=== PATIENT | female | born 1940 | race Caucasian/White ===

== ENCOUNTER 2023-12-05 13:50 | Emergency (ER) | payer MEDICARE, SELFPAY ==
[2023-12-05 14:21] VITALS: BP 116/68
[2023-12-05 15:00] VITALS: BP 107/63
--- NOTE | 2023-12-05 15:23 | ED.GENMED ---
History of Present Illness
General
Chief Complaint: Abdominal Symptoms
Source: spouse and family
Time Seen by Provider: 12/05/23 15:01
History of Present Illness
History of Present Illness:
83-year-old female brought to the emergency room for evaluation after an episode today where she passed out and that vomited. Patient has evidently had a long history of syncopal episodes. No clear source has been identified. Recently she was
admitted to [place] for 1 of these events which was also associated with some left facial droop and biting the tongue. An extensive workup was performed without any clear abnormalities. Patient was discharged and family was told they did not
believe she had an ischemic event or a seizure but rather had convulsive syncope. Patient only takes cholesterol medication. Currently she denies any chest pain, shortness of breath, abdominal pain or nausea. Patient does have dementia and is not
able to provide a very detailed history. states the patient does not vomit frequently. He was concerned there was blood in her vomitus but after further discussion we realized the patient had eaten blueberries this morning which I believe
accounts for the color of the vomitus.
Phy Exam
Physical Exam
Physical Exam:
General: Awake, Alert, Oriented X3. No acute distress.
Vitals: unremarkable
Head: Atraumatic
Eyes: Pupils equal, EOMI
Throat: Airway intact, no exudates
Neck: Trachea midline
Lungs: Clear and equal b/l
Heart: Regular rate, no murmurs
Abd: Soft, Nontender, No pulsatile mass
Rectal: Brown stool heme-negative
Neuro: Nonfocal
Skin: Warm, dry, no rash
Extremities: pulses equal b/l, no edema
Course
Orders/Labs/Results
Orders:
Orders
12/05/23 14:05
Electrocardiogram (*1) Urgent
Reason for Study: Syncope
12/05/23 14:06
EKG- Treatment ONCE
12/05/23 15:21
CMP [Comprehensive Metabolic Panel] Urgent
Complete Blood Count/With Diff Urgent
12/05/23 15:22
0.9% Sodium Chloride 500 ml [Nss] 500 ml IV BOLUS
12/05/23 16:15
Urinalysis Reflex To Culture Urgent
Date Specimen was Collected: 12/05/23
Time Specimen was Collected: 15:46
Urine Microscopic Reflex Cult Urgent
Urine Culture Urgent
MARKO Source: U
Specimen Description:
Date Specimen was Collected: 12/05/23
Time Specimen was Collected: 15:46
12/05/23 17:26
Urinalysis Reflex To Culture Urgent
Date Specimen was Collected: 12/05/23
Time Specimen was Collected: 17:24
Abnormal Lab Results
12/05/23 12/05/23
15:21 16:15
WBC 15.6 H 10^3/uL
(4.8-10.8)
MCH 31.7 H pg
(27.0-31.0)
Abs Immat Gran (auto) 0.1 H 10^3/uL
(0-0.05)
Absolute Neuts (auto) 14.1 H 10^3/uL
(1.4-6.5)
Absolute Lymphs (auto) 1.0 L 10^3/uL
(1.2-3.4)
Neutrophils % 90.4 H %
(42.2-75.2)
Lymphocytes % 6.1 L %
(20.5-51.1)
Sodium 130 L mmol/L
(135-145)
BUN 19 H mg/dl
(7-17)
Glucose 157 H mg/dl
(70-99)
AST 47 H U/L
(14-36)
Total Protein 5.9 L g/dl
(6.3-8.2)
Albumin 2.4 L g/dl
(3.5-5.0)
Urine Ketones 2+ A
(Negative)
Leukocyte Esterase Rfl 1+ A
(Negative)
Urine WBC (Reflex) 26-30 A /HPF
(0-5)
Urine Bacteria (Reflex) Many A
(Negative)
Urine Glucose 1+ A
(Negative)
Urine Albumin (Reflex) 1+ A
(Neg - Trace)
12/05/23 15:21
12/05/23 15:21
Vital Signs
Initial and Last Documented VS:
Initial Vital Signs
Temp Pulse Resp BP Pulse Ox
97.6 F 74 24 116/68 96
12/05/23 14:21 12/05/23 14:21 12/05/23 14:21 12/05/23 14:21 12/05/23 14:21
Last Documented Vital Signs
Temp Pulse Resp BP Pulse Ox
97.6 F 74 28 112/69 91
12/05/23 14:21 12/05/23 18:00 12/05/23 18:00 12/05/23 18:00 12/05/23 18:00
MDM/Problems Addressed
Differential Diagnosis Includes:
Syncope, vasovagal event, gastritis, UTI, electrolyte abnormality
MDM/Problems Addressed:
Labs show the patient has a very mild elevation of white blood cell count. Her chemistries show mild hyponatremia. BUN is mildly elevated at 19. Patient was treated with IV fluids. She had an initial urinalysis which was abnormal but had a large
number of squamous epithelial cells and was not a very good specimen based upon the description of how it was obtained. This was followed up with a straight cath urinalysis which is completely normal. Patient had abnormal green-colored vomitus
which is almost certainly due to the blueberry she ate. There is no evidence of gastrointestinal bleeding. Patient has had multiple syncopal episodes in the past without any etiology identified but she certainly does not have any risk factors for
cardiac syncope. Patient stable for discharge home. They are very happy to be going home.
*EKG
Interpreted by ED Provider?: Yes
Heart Rate: 71
Rate: normal
Rhythm: sinus
Interval: first degree heart block
QRS Pattern: normal QRS
Ischemia: no ischemia
*School Transportation Supervisor Interpretation
Rate: normal
Interpretation: abnormal
Rhythm: sinus
*Critical Care Note
Total Time (30-74mins, 75-104mins- exclusive of procedures): Not Applicable
Patient Management
Social determinants of health affecting care: Strong social support
ED Attending Note
-
Portions of this chart may have been created with voice recognition software.� Occasional wrong word or��sound alike� substitutions may have occurred due to the inherent limitations of voice recognition software.
Discharge Plan
Departure
Patient Disposition: Home (Routine Discharge)
Date of Disposition: 12/05/23
Time of Disposition: 18:04
Patient with high blood pressure during this ER visit?: No
Condition: Good
Discharge Problem:
Syncope, vasovagal
Instructions: Syncope (Fainting) (DC)
Referrals:
Sánchez Stinson MD [Family Provider] -
Interventions
Interventions:
*Risk Screen - Suicide Last Done: 12/05/23 14:40
*General Assessment Last Done: 12/05/23 14:40
*Neglect/Abuse Screening Last Done: 12/05/23 18:17
ED- Fall Risk Assessment Last Done: 12/05/23 14:40
*ED COVID-19 Vaccine History Last Done: 12/05/23 14:40
*Nursing Disposition Last Done: 12/05/23 18:17
CD-Hrgrbt-Uwfcirxkov Assessment Last Done: 12/05/23 14:40
Discharge Date and Time
Discharge Date/Time: 12/05/23 18:18
Print Language: KOREAN
[2023-12-05] MEDS: NSS 500 IV (15:28)
[2023-12-05 15:33] LABS: % Basophils 0.2 % (0-2); % Immature Granulocytes 0.4 % (0-0.5); % Lymphocytes 6.1 % (20.5-51.1); % Monocytes 2.9 % (1.7-9.3); % Neutrophils 90.4 % (42.2-75.2); Absolute Immature Granulocytes 0.1 10^3/uL (0-0.05); Absolute Monocytes 0.5 10^3/uL (0.1-0.6); Absolute Neutrophils 14.1 10^3/uL (1.4-6.5); Hematocrit 37.1 % (37.0-47.0); Hemoglobin 13.5 g/dL (12.0-16.0); Mean Corp Hgb Conc. 36.4 g/dL (33.0-37.0); Mean Corpuscular Hgb 31.7 pg (27.0-31.0); Mean Corpuscular Volume 87.1 fL (81.0-99.0); Mean Platelet Volume 10.2 fL (7.4-10.4); Nucleated Red Blood Cells % 0 %; Platelet Count 206 10^3/uL (130-400); Red Blood Cell Count 4.26 10^6/uL (4.20-5.40); Red Cell Dist. Width 14.1 % (11.5-14.5); White Blood Cell Count 15.6 10^3/uL (4.8-10.8)
[2023-12-05 15:43] LABS: ALT (SGPT) 28 U/L (0-35); AST (SGOT) 47 U/L (14-36); Albumin 2.4 g/dl (3.5-5.0); Alkaline Phosphatase 60 U/L (38-126); Blood Urea Nitrogen 19 mg/dl (7-17); Calcium 9.7 mg/dl (8.4-10.2); Carbon Dioxide 26 mmol/L (22-30); Chloride 98 mmol/L (98-107); Glucose 157 mg/dl (70-99); Sodium 130 mmol/L (135-145); Total Bilirubin 0.6 mg/dl (0.2-1.3); Total Protein 5.9 g/dl (6.3-8.2); eGFR > 60.00
[2023-12-05 16:00] VITALS: BP 113/68
[2023-12-05 16:32] LABS: Urine Albumin 1+ (Neg - Trace); Urine Bilirubin Negative (Negative); Urine Character Clear (Clear); Urine Color Yellow; Urine Glucose 1+ (Negative); Urine Ketone 2+ (Negative); Urine Leukocyte 1+ (Negative); Urine Nitrite Negative (Negative); Urine Occult Blood Negative (Negative); Urine Specific Gravity 1.025 (<1.030); Urine Urobilinogen Negative (Neg - 1+)
[2023-12-05 16:38] LABS: Urine Squamous Cell >30 /LPF (Few)
[2023-12-05 16:39] LABS: Urine Bacteria Many (Negative); Urine Red Blood Cell 0-2 /HPF (0-2); Urine White Cell 26-30 /HPF (0-5)
[2023-12-05 17:00] VITALS: BP 110/63
[2023-12-05 17:36] LABS: Urine Albumin Negative (Neg - Trace); Urine Bilirubin Negative (Negative); Urine Character Clear (Clear); Urine Color Yellow; Urine Glucose Negative (Negative); Urine Ketone Negative (Negative); Urine Leukocyte Negative (Negative); Urine Nitrite Negative (Negative); Urine Occult Blood Negative (Negative); Urine Specific Gravity 1.015 (<1.030); Urine Urobilinogen Negative (Neg - 1+)
[2023-12-05 18:00] VITALS: BP 112/69
== END 2023-12-05 18:18 | disposition home or self-care (01) ==
LOC: EMR 13:50
PROVIDERS: Emergency Medicine; EMERGENCY PHYSICIAN Emergency Medicine; FAMILY PHYSICIAN Internal Medicine
DX: R55 Syncope and collapse (principal); R11.10 Vomiting, unspecified; F03.90 Unspecified dementia, unspecified severity, without behavioral disturbance, psychotic disturbance, mood disturbance, and anxiety; E87.1 Hypo-osmolality and hyponatremia; I44.0 Atrioventricular block, first degree; Z79.899 Other long term (current) drug therapy; Z88.5 Allergy status to narcotic agent
CPT/HCPCS: 99284; 51701; 80053; 81003; 81015; 85025; 87086; 93005

== ENCOUNTER 2024-01-13 13:11 | Inpatient (IN) | payer MEDICARE, OTHER, SELFPAY ==
[2024-01-13] VITALS (13 sets, daily range): BP systolic 97–142; BP diastolic 46–83; PULSE 82; O2SAT 93; BMI 29.6
--- NOTE | 2024-01-13 11:02 | ED.CVA ---
History of Present Illness
General
Chief Complaint: CVA/TIA Symptoms
Source: patient, spouse and ambulance crew
Exam Limitations: clinical condition
Time Seen by Provider: 01/13/24 11:00
Nursing documentation reviewed up to this point in time: agreed with
Onset of Stroke Symptoms
Onset of symptoms known: Yes
Date of onset of symptoms: 01/13/24
History of Present Illness
History of Present Illness:
83-year-old female with past medical history of hyperlipidemia, TIA/CVA who presents to the ER via EMS as a prehospital stroke alert due to expressive aphasia, gaze deviation and confusion. On arrival patient awake and alert she seems to be
speaking appropriately she says that she feels 'tired. But denies any other complaints. I spoke to the patient's �he says that she woke up this morning appeared normal. She came down with breakfast around 9 AM and seem to be moving slower
than usual. He says that she seemed to have trouble eating her breakfast and was getting confused, complaining of being lightheaded. He says that she started to have progressive difficulty talking�she says that she was having difficulty finishing
her sentences. He says that she started to complain of worsening lightheadedness and laid her down on the ground that she did not pass out but rested on the ground for about 20 minutes. Eventually she got to the point where she could barely get
any words out at all and 'froze up and became less responsive.' EMS called to the scene. Per EMS on arrival she appeared to have left gaze preference, head drifting towards the right but no focal weakness in the arms or the legs. She was
following commands. She did have trouble expressing herself. Prehospital stroke alert called. On arrival here she complains of feeling tired, she does admit to feeling dizzy prior to arrival. Denies any chest pain or shortness of breath or any
other complaints. She apparently did have a similar episode at [facility] 6 to 8 weeks ago� says they were told it was not related to a stroke. She was then seen in the emergency room a few weeks later after syncopal event. No other issues
since.
Review of Systems
Review of Systems
All Other Systems: ROS reviewed and negative except as documented in HPI and ROS
Constitutional: Denies fever or chills
EENT: Denies sore throat or runny nose
Respiratory: Denies cough or trouble breathing
Cardiac: Denies chest pain or palpitations
ABD/GI: Denies abdominal pain, nausea, vomiting or diarrhea
: Denies dysuria, frequency or flank pain
Musculoskeletal: Denies neck pain or back pain
Neurological: Reports dizzy and other (Speech difficulties, confusion); Denies headache
Phy Exam
Physical Exam
Physical Exam:
General: Awake, alert, oriented x2; no acute distress
Head: Normocephalic, atraumatic
Eyes: Conjunctiva normal, EOMI (no gaze deviation noted), pupils equal round and reactive to light bilaterally; question right upper visual field deficit
Throat: Airway intact, handling secretions
Neck: Trachea midline, supple without meningismus
Lungs: Breathing comfortably no distress
Heart: Regular rate and rhythm, no murmurs, gallops, or rubs
Neuro: Question a right upper quadrant visual field deficit, otherwise cranial nerves intact 2 through 12, speech is fluid no dysarthria or aphasia, motor and sensory function intact and symmetric upper and lower extremities
Skin: no rash
Extremities: No edema in extremities, well-perfused
Scores
NIH Stroke Score
Level of Consciousness: 0 - Alert
LOC Questions: 1-Answers one correctly
LOC Commands: 0-Performs both correctly
Best Horizontal Gaze: 0-Normal
Visual López: 1=Partial hemianopia
Facial Palsy: 0=Normal, symmetrical
Motor - Right Arm: 0=No drift 10 seconds
Motor - Left Arm: 0=No drift 10 seconds
Motor - Right Le-No drift 5 seconds
Motor - Left Le-No drift 5 seconds
Limb Ataxia: 0-Absent
Sensation: 0-Normal
Best Language: 0-No aphasia
Dysarthria: 0-Normal
Extinction and Inattention: 0-No abnormality
Total Score:: 2
Thrombolytic Contraindication
Inclusion and Exclusion criteria reviewed: Yes
Reasons for NON-Tx with Thrombolytics POSSIBLE Exclusions: Recent ischemic stroke within 3 months (CT shows old stroke which is apparently recent as patient and report normal imaging at [facility])
Heart Failure Risk
Heart Failure Risk Score: Not Applicable
Heart Score for Chest Pain Patients
STEMI patient?: Not applicable
Withdrawal Assessment of Alcohol
Withdrawal Assessment Completed?: Not applicable
Course
Orders/Labs/Results
Orders:
Orders
01/13/24 11:00
Electrocardiogram (*1) Stat
Reason for Study: Other
Other Reason for Exam: neuro symptoms
CT Head W/o Cont STROKE ALERT Urgent
Comment:
Reason For Exam: left gaze preference, confused
CT Head/Neck Ang STROKE ALERT Urgent
Comment:
Reason For Exam: left gaze preference, confused
NEUROLOGY CONSULT Urgent
Consulting Provider: Uzair Lew
Was physician already notified: Yes
Bedside Glucose- Treatment ONCE
Cardiac Monitoring- Treatment ONCE
IV Insert/Care/Rem.- Treatment PRN
Vital Signs- Treatment ONCE
Frequency: q30m
O2 Therapy [RESP] Stat
Titrate/Wean O2 to maintain O2 sat greater than (%): 90
Pulse Ox/cont/shift [RESP] Stat
Quantity: 1
01/13/24 11:01
EKG- Treatment ONCE
01/13/24 11:11
Cardiovascular Evaluation Urgent
Complete Blood Count/With Diff Urgent
Comprehensive Metabolic Panel Urgent
Ferritin Urgent
Folate Urgent
Glycohemoglobin (HgbA1c) Urgent
PTT Urgent
Prothrombin Time Urgent
TSH Reflex To Free T4 Urgent
Vitamin B12 Urgent
01/13/24 11:28
Diphenhydramine [Benadryl] 50 mg IV NOW STA
Hydrocortisone Sod Succinate [Solu-Cortef] 200 mg IV NOW STA
Levetiracetam Injectable [Keppra] 1,000 mg IV NOW STA
01/13/24 11:36
EEG Routine Urgent
Reason for Exam: seizure
MR Brain W/o & With Contrast Routine
Comment:
Reason For Exam: seizure, mass/old stroke CT head
Recent pill cam endoscopy?: No
01/13/24 12:06
Aspirin 325 mg PO NOW STA
01/13/24 12:47
Add On- LAB Routine
Tests Added?: folate, ferritin, TSH reflex, B12, lipid panel, hbA1c
01/13/24 12:50
Admit/Transfer Patient As Directed
Co-Sign Provider:
Level of Care: Inpatient admission
Assign to:: Telemetry
Physician / Group: tonny
Diagnosis: TiA vs seizure
Reason for Telemetry: CVA/TIA
Date to Stop Telemetry: 01/16/24
Time to Stop Telemetry: 11:00
Reason for Hospitalization: TIA vs Seizure
Expected length of stay greater than two midnights?: Yes
ELOS- Estimated Length of Stay in days: 3
I certify the patient meets the requirements for IP care: Yes
PRN Pain Medication Management As Directed
May give lesser potent ordered pain med per pt: Yes
preference::
Protocol:: Medication orders for pain may be administered in a
manner that supports deferring to patient preference
when the pt is:
- Requesting an ordered lesser potent pain medication.
Least to most potent pain medications are defined
as: acetaminophen < NSAID < tramadol < opioids
(morphine, oxycodone, hydromorphone).
- Requesting a lesser dose of the same medication IF
ORDERED.
- Requesting a less intrusive route of administration
if both routes are prescribed by the provider (PO <
IV).
01/13/24 12:51
Code Status As Directed
Resuscitation Status: Full Code
01/13/24 13:03
CR Chest - 2 Views Stat
Comment:
Reason For Exam: sob
Speech Screening from [facility] Routine
01/13/24 13:07
COVID-19 Antigen Stat
Source: Nasal Swab
01/13/24 14:21
Acetaminophen [Tylenol/Feverall] 650 mg RECTAL Q4HPRN PRN
Acetaminophen [Tylenol] 650 mg PO Q4HPRN PRN
01/13/24 14:21
Case Management Consult ONCE
Case Management Consult: Discharge Planning
Comment: stroke/tia
DIETARY CONSULT Routine
Reason for Consult: stroke/TIA
[employer] Supervisor Urgent
Urinalysis Routine
Activity As Directed
Activity Level: As Tolerated
NIH Stroke Scale As Directed
Directions: Per protocol
Comment: every shift and with any change in condition or mental status
Neurological Checks As Directed
Frequency: q4h
Additional Instructions:: q4h x 24h upon admission to the floor, then qshift & with any change in condition
and mental status
Patient Education As Directed
Type: Stroke education packet
Comment: provide to patient and family
Pneumatic Compression Sleeves As Directed
Type: Thigh high
Precautions As Directed
Type of Precautions: Seizure
Swallow Screening CVA/TIA ONLY As Directed
Comment: NPO until swallowing screening completed
If patient FAILS swallow screening:: NPO, Speech Therapy consult, Aspiration Precautions
If patient PASSES swallow screening, diet:: Cholesterol Lowering
Vital Signs As Directed
Frequency: Per unit guidelines
Ot Eval And Treat Routine
Pt Eval And Treat Routine
Activity Level: As Tolerated
Speech Therapy Eval & Treat Routine
DX Deep Vein Thrombosis Video Routine
01/13/24 18:00
Atorvastatin [Lipitor] 40 mg PO QPM
01/13/24 20:00
Levetiracetam Injectable [Keppra] 500 mg IV Q12
01/14/24 06:00
Basic Metabolic Panel IN AM
Cardiovascular Evaluation IN AM
Complete Blood Count/No Diff IN AM
01/14/24 08:00
Aspirin Chewable [Low Strength Aspirin] 81 mg PO DAILY
01/15/24 06:00
Complete Blood Count/No Diff IN AM
01/16/24 06:00
Complete Blood Count/No Diff IN AM
01/16/24 11:00
DC Protocol for Telemetry ONCE
01/17/24 06:00
Complete Blood Count/No Diff IN AM
Abnormal Lab Results
01/13/24 01/13/24
11:11 11:18
WBC 11.5 H 10^3/uL
(4.8-10.8)
MCH 31.5 H pg
(27.0-31.0)
Abs Immat Gran (auto) 0.2 H 10^3/uL
(0-0.05)
Absolute Neuts (auto) 7.7 H 10^3/uL
(1.4-6.5)
Immature Gran % 1.9 H %
(0-0.5)
Carbon Dioxide 17 L mmol/L
(22-30)
Glucose 203 H mg/dl
(70-99)
POC Glucose 178 H mg/dl
(70-99)
01/13/24 11:11
01/13/24 11:11
Vital Signs
Initial and Last Documented VS:
Initial Vital Signs
Pulse Resp Pulse Ox
96 20 95
01/13/24 11:18 01/13/24 11:18 01/13/24 11:18
Last Documented Vital Signs
Temp Pulse Resp BP Pulse Ox
36.8 C 78 18 122/71 96
01/13/24 14:40 01/13/24 14:40 01/13/24 14:40 01/13/24 14:40 01/13/24 14:40
MDM/Problems Addressed
Differential Diagnosis Includes:
CVA, seizure, brain mass
MDM/Problems Addressed:
83-year-old female presents after an episode of expressive aphasia, confusion, dizziness and apparently had transient gaze deviation that was witnessed by EMS. She was called as a prehospital stroke alert, symptoms seem to have improved by
arrival�neuroexam was significant only for some mild confusion (oriented x 2) and questionable right upper quadrant visual field defect. Vital signs normal. 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
meningioma but no acute pathology. CTA head and neck negative for any LVO or dissection. Neurology at bedside during initial evaluation and we discussed the case at length in the ER�suspect likely that this was a seizure episode. Recommended no
TNK. Will cover with aspirin, admit for MRI, EEG. They recommended loading with Keppra. Case discussed with hospitalist for admission.
Chronic conditions affecting care:
Hyperlipidemia, TIA/CVA
*Radiology
Radiology exam reviewed: radiology read reviewed
*Pulse Oximetry
Patient hypoxic: no
*EKG
Interpreted by ED Provider?: Yes
Heart Rate: 94
Rate: normal
Rhythm: sinus
Plover: left axis deviation
Interval: first degree heart block
QRS Pattern: normal QRS and left vent hypertrophy
Ischemia: non-specific ST changes
*Critical Care Note
Total Time (30-74mins, 75-104mins- exclusive of procedures): Not Applicable
Data Reviewed
Source: patient, records, spouse and ambulance crew
Patient Management
Discussion with other providers: Hospitalist (Discussed with hospitalist), Bill Peddler (Discussed with neurologist) and Radiologist (Discussed with radiology)
Escalation/DeEscalation of care consider admission/obs:
Admission indicated
ED Attending Note
-
Portions of this chart may have been created with voice recognition software.� Occasional wrong word or��sound alike� substitutions may have occurred due to the inherent limitations of voice recognition software.
Discharge Plan
Departure
Patient Disposition: Admit
Date of Disposition: 01/13/24
Time of Disposition: 12:06
Admit to doctor: Tonny
Presentation/result/management discussed w/ accepting MD/DO: Hospitalist
Discharge Problem:
Brain TIA
Interventions
Interventions:
*Risk Screen - Suicide Last Done: 01/13/24 11:35
*General Assessment Last Done: 01/13/24 11:35
*Neglect/Abuse Screening Last Done: 01/13/24 11:35
*ED COVID-19 Vaccine History Last Done: 01/13/24 11:35
*Nursing Disposition Last Done: 01/13/24 14:12
ED- Pulmonary Assessment Last Done: 01/13/24 11:38
ED- Neurological Assessment Last Done: 01/13/24 11:38
ED- Cardiac Assessment Last Done: 01/13/24 11:38
ED Swallowing Screen Last Done: 01/13/24 13:03
Discharge Date and Time
Discharge Date/Time: 01/13/24 14:12
--- NOTE | 2024-01-13 11:11 | CON.NEURO4 ---
Documented by User: Africa Prescott NP 01/13/24 13:01
Consultation - Neurology 4
-
CONSULTING PHYSICIAN: Uzair Lew MD
REFERRING PHYSICIAN: ER/Dr. Granado
DICTATED BY: STANLEY Petit
DATE/TIME OF REQUEST: 01/13/24
DATE/TIME OF CONSULTATION: 01/13/24
Reason for Consultation: Stroke Alert
History of Present Illness:
This is a 83-year-old left-handed female who has presented to the hospital with report of change in mental status. Patient is unable to provide a history and this information is obtained from paramedics and her spouse at bedside. Patient has a
significant history of vasovagal syncope dating back decades. Per her , her syncopal episodes in the past were typically short lived, she would lie flat for a minute and return to her baseline within a minute or so. in October 2023, he reports
that she lost consciousness while seated, her upper extremities were stiff/slightly shaky, her left face appeared droopy, and she bit her tongue. He was unable to 'wake her up' during that event. She was evaluated at [facility] at that time,
unclear what diagnostic workup was completed. They were told the event was convulsive syncope. Then in November 2023, she had another episode of losing consciousness which he reports was fairly similar to October's event. She became stiff/slightly shaky,
lost consciousness, and then vomited. It took her an extended period to return to her baseline. She was hyponatremic, and the event was deemed vasovagal syncope. She did not have any neurological imaging completed during that visit.
Today (01/13/24), patient's reports that she woke up and came to eat breakfast at 0900 but seemed to be moving slowly. She complained of back pain which is not unusual. During breakfast, she started having difficulty getting her words
out/could not finish her sentences, and she was not able to eat. She reported feeling dizzy and lightheaded and her legs were shaky. She sat for 20 minutes resting and was speaking minimally but was awake and alert. He then helped her to lie on the
ground because of her lightheadedness. An hour later at 1000 he reports she 'froze' and became stiff, started turning blue, and stopped responding to him, prompting him to call 911. EMS report that she had left facial drooping and difficulty
speaking on their arrival and they activated a stroke alert. CT head and CTA head/neck were obtained on arrival in the ER. CT head demonstrates an old right frontal lobe ischemic stroke, possible tiny old left thalamic infarct, and two left
posterior parafalcine partially calcified lesions likely representing meningiomas. NIHSS is 4 for inability to answer orientation questions, mild left facial droop, and RUQ field cut. She appears to have a slight right tongue laceration/dried blood.
She is not a candidate for TNK/IAT due to unclear diagnosis, more likely seizure than stroke, and concern for brain mass. Patient denies any headache, dizziness, vision changes, speech/swallow difficulty, numbness, weakness, chest pain,
palpitations, and shortness of breath. She reports feeling cold and cannot recall what led to her coming to the hospital. Patient and her deny any known history of stroke. She is not taking any blood thinning medications.
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
Surgical History: Unknown.
Family History: Reviewed and noncontributory.
Social History: Denies tobacco and illicit drug use. Occasional alcohol.
Allergies: Codeine.
Home Medications: See below.
Review of Symptoms:
Patient denies any fever, headache, chest pain, shortness of breath, GI or symptoms.
�Per the HPI.�All systems are reviewed negative except above.
Physical Exam:
The patient is afebrile, abdomen is nondistended, breathing is unlabored, skin is warm and dry, no edema.
NIH Stroke Scale:
I performed the NIH stroke scale on the patient on 01/13/24 at 1115. The patient scored 4 points on the NIH stroke scale assessment, which were assigned as follows: See below.
Neurologic Examination:
The patient is awake, alert and oriented to person only. She is able to follow commands and answer questions appropriately. There is no aphasia or dysarthria. On cranial nerve assessment, pupils are 3 mm bilateral, round and reactive to light and
accommodation. Visual lópez are reduced bilaterally in the RUQ. Extraocular movements are intact. Facial sensations are intact and bilaterally symmetrical. There is mild left facial drooping. Hearing is intact bilaterally to normal conversation
volume. Tongue palate and uvula are midline. Sternocleidomastoid strengths are full bilaterally. Motor strengths are 5/5 bilateral upper and lower extremities on medical research [place] scale. There is no drift or involuntary movement noted.
Babinski is absent bilaterally. There was no extinction noted on double simultaneous stimulation. Coordination is intact by finger to nose bilaterally.
Lab Results: See below.
Neuro Imaging:
1. CT Head 01/13/24: No acute intracranial hemorrhage. Moderate size area of decreased attenuation in the right frontal lobe deep white matter most likely representing an area of encephalomalacia/old infarction. Possible tiny old left thalamic
lacunar infarct. Two left posterior parafalcine partially calcified lesions most likely representing meningiomas, as measured above. ASPECTS score: 10.
2. CTA Head/Neck 01/13/24: No findings to suggest hemodynamically significant stenosis of the proximal internal carotid arteries bilaterally. No findings to suggest internal carotid artery or vertebral artery dissection bilaterally.
Narrow caliber left vertebral artery extending to left PICA, congenital variant of normal. 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
Differentials for the patient's presentation include:
1. Change in mental status likely due to partial seizure.
2. CT head suggestive of old right frontal lobe ischemic stroke and left posterior parafalcine lesions.
Patient has the following risk factors for their symptoms: Large old stroke, possible brain mass, hx syncope
IV Tenecteplase/IAT candidacy: She is not a candidate for TNK/IAT due to unclear diagnosis, more likely seizure than stroke, and concern for brain mass.
Recommendations:
-Provide aspirin 325mg x1 now. Continue aspirin 81mg daily for stroke prevention.
-Provide Keppra 1000mg IV x1 now. Continue Keppra 500mg IV q12hrs.
-MRI brain w/ and without contrast pending.
-Routine EEG pending.
-Reviewed preliminary MRI brain imaging with Neurosurgery Dr. Borges in person, per Neurosurgery, patient can follow-up regarding left posterior parafalcine meningioma as an outpatient.
-Goal normotension.
-LDL goal <70. LDL is pending. Home atorvastatin 10mg increased to 40mg daily.
-Goal normoglycemia, hbA1c is pending.
-Checking blood work for metabolic abnormalities.
-Neurological checks per unit guidelines.
-Provide patient with a stroke education packet.
-Seizure precautions.
-PT/OT/ST evaluations.
-DVT prophylaxis.
-Will follow pending results.
Discussed patient care with: Dr. Lew, the patient
Vital Signs and Labs
-
Vital Signs and Labs:
Vital Signs
Temp Pulse Resp BP Pulse Ox
97.8 F 84 23 126/72 92
01/13/24 11:32 01/13/24 11:54 01/13/24 11:45 01/13/24 11:45 01/13/24 11:45
Lab Results
01/13/24 11:11
01/13/24 11:11
PT 13.3 Sec (11.4-14.6) 01/13/24 11:11
INR 1.03 01/13/24 11:11
APTT 28.7 Sec (23.4-35.0) 01/13/24 11:11
Sodium 138 mmol/L (135-145) 01/13/24 11:11
Potassium 3.9 mmol/L (3.5-5.1) 01/13/24 11:11
BUN 16 mg/dl (7-17) 01/13/24 11:11
Glucose 203 mg/dl (70-99) H 01/13/24 11:11
Calcium 9.4 mg/dl (8.4-10.2) 01/13/24 11:11
Medications
-
Home Medications
�Medication �Instructions �Recorded
atorvastatin 10 mg tablet 10 mg PO DAILY 01/13/24
NIH Stroke Score
Subsequent NIH Scale
Date of Subsequent NIH Scale: 01/13/24
Time of Subsequent NIH Scale: 11:15
NIH Stroke Score
Level of Consciousness: 0 - Alert
LOC Questions: 2-Neither correct
LOC Commands: 0-Performs both correctly
Best Horizontal Gaze: 0-Normal
Visual Lpóez: 1=Partial hemianopia
Facial Palsy: 1=Minor paralysis
Motor - Right Arm: 0=No drift 10 seconds
Motor - Left Arm: 0=No drift 10 seconds
Motor - Right Le-No drift 5 seconds
Motor - Left Le-No drift 5 seconds
Limb Ataxia: 0-Absent
Sensation: 0-Normal
Best Language: 0-No aphasia
Dysarthria: 0-Normal
Extinction and Inattention: 0-No abnormality
Total Score:: 4

Documented by User: Uzair Lew MD 01/16/24 13:46
Consultation - Neurology 4
-
CONSULTING PHYSICIAN: Uzair Lew MD
REFERRING PHYSICIAN: ER/Dr. Granado
DICTATED BY: STANLEY Petit
DATE/TIME OF REQUEST: 01/13/24
DATE/TIME OF CONSULTATION: 01/13/24
Reason for Consultation: Stroke Alert
History of Present Illness:
This is a 83-year-old left-handed female who has presented to the hospital with report of change in mental status. Patient is unable to provide a history and this information is obtained from paramedics and her spouse at bedside. Patient has a
significant history of vasovagal syncope dating back decades. Per her , her syncopal episodes in the past were typically short lived, she would lie flat for a minute and return to her baseline within a minute or so. in October 2023, he reports
that she lost consciousness while seated, her upper extremities were stiff/slightly shaky, her left face appeared droopy, and she bit her tongue. He was unable to 'wake her up' during that event. She was evaluated at [facility] at that time,
unclear what diagnostic workup was completed. They were told the event was convulsive syncope. Then in November 2023, she had another episode of losing consciousness which he reports was fairly similar to October's event. She became stiff/slightly shaky,
lost consciousness, and then vomited. It took her an extended period to return to her baseline. She was hyponatremic, and the event was deemed vasovagal syncope. She did not have any neurological imaging completed during that visit.
Today (01/13/24), patient's reports that she woke up and came to eat breakfast at 0900 but seemed to be moving slowly. She complained of back pain which is not unusual. During breakfast, she started having difficulty getting her words
out/could not finish her sentences, and she was not able to eat. She reported feeling dizzy and lightheaded and her legs were shaky. She sat for 20 minutes resting and was speaking minimally but was awake and alert. He then helped her to lie on the
ground because of her lightheadedness. An hour later at 1000 he reports she 'froze' and became stiff, started turning blue, and stopped responding to him, prompting him to call 911. EMS report that she had left facial drooping and difficulty
speaking on their arrival and they activated a stroke alert. CT head and CTA head/neck were obtained on arrival in the ER. CT head demonstrates an old right frontal lobe ischemic stroke, possible tiny old left thalamic infarct, and two left
posterior parafalcine partially calcified lesions likely representing meningiomas. NIHSS is 4 for inability to answer orientation questions, mild left facial droop, and RUQ field cut. She appears to have a slight right tongue laceration/dried blood.
She is not a candidate for TNK/IAT due to unclear diagnosis, more likely seizure than stroke, and concern for brain mass. Patient denies any headache, dizziness, vision changes, speech/swallow difficulty, numbness, weakness, chest pain,
palpitations, and shortness of breath. She reports feeling cold and cannot recall what led to her coming to the hospital. Patient and her deny any known history of stroke. She is not taking any blood thinning medications.
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
Surgical History: Unknown.
Family History: Reviewed and noncontributory.
Social History: Denies tobacco and illicit drug use. Occasional alcohol.
Allergies: Codeine.
Home Medications: See below.
Review of Symptoms:
Patient denies any fever, headache, chest pain, shortness of breath, GI or symptoms.
�Per the HPI.�All systems are reviewed negative except above.
Physical Exam:
The patient is afebrile, abdomen is nondistended, breathing is unlabored, skin is warm and dry, no edema.
NIH Stroke Scale:
I performed the NIH stroke scale on the patient on 01/13/24 at 1115. The patient scored 4 points on the NIH stroke scale assessment, which were assigned as follows: See below.
Neurologic Examination:
The patient is awake, alert and oriented to person only. She is able to follow commands and answer questions appropriately. There is no aphasia or dysarthria. On cranial nerve assessment, pupils are 3 mm bilateral, round and reactive to light and
accommodation. Visual lópez are reduced bilaterally in the RUQ. Extraocular movements are intact. Facial sensations are intact and bilaterally symmetrical. There is mild left facial drooping. Hearing is intact bilaterally to normal conversation
volume. Tongue palate and uvula are midline. Sternocleidomastoid strengths are full bilaterally. Motor strengths are 5/5 bilateral upper and lower extremities on medical research [place] scale. There is no drift or involuntary movement noted.
Babinski is absent bilaterally. There was no extinction noted on double simultaneous stimulation. Coordination is intact by finger to nose bilaterally.
Lab Results: See below.
Neuro Imaging:
1. CT Head 01/13/24: No acute intracranial hemorrhage. Moderate size area of decreased attenuation in the right frontal lobe deep white matter most likely representing an area of encephalomalacia/old infarction. Possible tiny old left thalamic
lacunar infarct. Two left posterior parafalcine partially calcified lesions most likely representing meningiomas, as measured above. ASPECTS score: 10.
2. CTA Head/Neck 01/13/24: No findings to suggest hemodynamically significant stenosis of the proximal internal carotid arteries bilaterally. No findings to suggest internal carotid artery or vertebral artery dissection bilaterally.
Narrow caliber left vertebral artery extending to left PICA, congenital variant of normal. 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
Differentials for the patient's presentation include:
1. Change in mental status likely due to partial seizure.
2. CT head suggestive of old right frontal lobe ischemic stroke and left posterior parafalcine lesions.
Patient has the following risk factors for their symptoms: Large old stroke, possible brain mass, hx syncope
IV Tenecteplase/IAT candidacy: She is not a candidate for TNK/IAT due to unclear diagnosis, more likely seizure than stroke, and concern for brain mass.
Recommendations:
-Provide aspirin 325mg x1 now. Continue aspirin 81mg daily for stroke prevention.
-Provide Keppra 1000mg IV x1 now. Continue Keppra 500mg IV q12hrs.
-MRI brain w/ and without contrast pending.
-Routine EEG pending.
-Reviewed preliminary MRI brain imaging with Neurosurgery Dr. Borges in person, per Neurosurgery, patient can follow-up regarding left posterior parafalcine meningioma as an outpatient.
-Goal normotension.
-LDL goal <70. LDL is pending. Home atorvastatin 10mg increased to 40mg daily.
-Goal normoglycemia, hbA1c is pending.
-Checking blood work for metabolic abnormalities.
-Neurological checks per unit guidelines.
-Provide patient with a stroke education packet.
-Seizure precautions.
-PT/OT/ST evaluations.
-DVT prophylaxis.
-Will follow pending results.
Discussed patient care with: Dr. Lew, the patient
Neurology Attending Note:
83 yr. old lady with h/o numerous syncopal episodes over the last 5 years, breast cancer s/p lumpectomy, macular degeneration, legally blind who was in her USOH till this morning, when she sitting for breakfast.she started having difficulty talking
and could not finish her sentences, and she was not able to eat. She reported feeling dizzy and lightheaded and her legs were shaky. For next 20 minutes she was resting and speaking minimally but was awake and alert. He then helped her to lie on
the ground because of her lightheadedness. An hour later at 1000 he reports she 'froze' became stiff, turning blue, and stopped responding to him, prompting him to call 911.
EMS report that she had left facial drooping and difficulty speaking on their arrival Her face was drooping and there was twitching and jerking of her arms and legs. Previously after a few minutes pat would wake up and return to her baseline. But
she was unable to be aroused and remained lethargic. EMS notified and pat arrived to ED as stroke alert
In the ED pat woke up, was able to speak and follow commands. She could move all extremities
CT head showed chronic Right frontal ischemia with Left occipital meningioma
Pat was given Keppra 1000mg IV
O/E : Awake confused Oriented to person with limited interaction tends to fall asleep postictal. CN exam Reveals Right field cut with left facial weakness.
Motor exam reveals mild left sided weakness with Left Babinskis
She had similar complaints in September/October 2023 and was seen at [facility] with inconclusive findings. informs us that he is unaware of the old CVA or the left occipital meningioma
PLAN: MRI brain with and without Arpit
Keppra 500 mg BID
EEG
Neurosurgery eval
Pat may be discharged when she is medically stable.
NIH Stroke Score
NIH Stroke Score
Total Score:: 4
[2024-01-13 11:20] LABS: % Basophils 0.3 % (0-2); % Immature Granulocytes 1.9 % (0-0.5); % Lymphocytes 25.5 % (20.5-51.1); % Monocytes 4.2 % (1.7-9.3); % Neutrophils 67.1 % (42.2-75.2); Absolute Eosinophils 0.1 10^3/uL (0-0.7); Absolute Immature Granulocytes 0.2 10^3/uL (0-0.05); Absolute Lymphocytes 2.9 10^3/uL (1.2-3.4); Absolute Monocytes 0.5 10^3/uL (0.1-0.6); Absolute Neutrophils 7.7 10^3/uL (1.4-6.5); Hematocrit 40.8 % (37.0-47.0); Hemoglobin 14.3 g/dL (12.0-16.0); Mean Corpuscular Hgb 31.5 pg (27.0-31.0); Mean Corpuscular Volume 89.9 fL (81.0-99.0); Mean Platelet Volume 9.7 fL (7.4-10.4); Nucleated Red Blood Cells % 0 %; Platelet Count 241 10^3/uL (130-400); Red Blood Cell Count 4.54 10^6/uL (4.20-5.40); White Blood Cell Count 11.5 10^3/uL (4.8-10.8)
[2024-01-13 11:20] LABS: Glucose - Point of Care 178 mg/dl (70-99)
[2024-01-13 11:29] LABS: INR 1.03; PT 13.3 Sec (11.4-14.6)
[2024-01-13 11:30] LABS: APTT 28.7 Sec (23.4-35.0)
[2024-01-13 11:36] LABS: ALT (SGPT) 26 U/L (0-35); AST (SGOT) 32 U/L (14-36); Alkaline Phosphatase 76 U/L (38-126); Blood Urea Nitrogen 16 mg/dl (7-17); Calcium 9.4 mg/dl (8.4-10.2); Carbon Dioxide 17 mmol/L (22-30); Chloride 103 mmol/L (98-107); Estimated Creatinine Clearance 48 ml/min; Glucose 203 mg/dl (70-99); Potassium 3.9 mmol/L (3.5-5.1); Sodium 138 mmol/L (135-145); Total Bilirubin 0.9 mg/dl (0.2-1.3); Total Protein 6.4 g/dl (6.3-8.2); eGFR > 60.00
[2024-01-13] MEDS: KEPPRA 1000 MG IV (11:49)
--- NOTE | 2024-01-13 12:20 | HPS.HSE ---
Family Physician
-
Family Physician: INTERVIEWE UNKNOWN - PT NOT
Chief Complaint
-
unresponsive
History of Present Illness
83 year old with PMH for breast cancer s/p lumpectomy, macular degeneration, HLD,hypotension presented to us with unresponsive, shaky. she has a history of passing out due to hypotension, which usually lost last for 5 minutes. today it lasted one
hour. today she was having trouble forming sentence. she was shaky and stiff. six weeks ago had similar episode and was evaluated at [place] and stroke was ruled out. at present patient denied HOWARD, dizzy. denied fever, chills, chest pain, sob.
denied runny nose, congestion, cough. denied abdominal pain,n,v,d. denied dysuria or hematuria.
admitting for further management.
Medical History
Past Medical History
Past Medical History: Reports None and Other
Additional Past Medical History:
breast cancer
macular degeneration
legally blind
Past Surgical History: Reports None
Additional Past Surgical History:
b/l knee replacement
lumpectomy
Social History
Tobacco: Non-smoker
Alcohol: None
Drug: None
Personal:
Living: With Family
Family History
Family History: Not pertinent
Allergies / Home Medications
Allergies reflects when Allergies were last updated in [facility].
Home Medications with original date entered in [facility]
Allergy/Medication List:
Allergies
Allergy/AdvReac Type Severity Reaction Status Date / Time
codeine Allergy Vomiting Verified 01/13/24 11:24
Home Medications
atorvastatin 10 mg tablet 10 mg PO DAILY 01/13/24
Review of Systems
-
Constitutional: Reports No Symptoms
EENT: Reports No Symptoms
Respiratory: Reports No Symptoms
Cardiac: Reports No Symptoms
Abdomen/GI: Reports No Symptoms
: Reports No Symptoms
Musculoskeletal: Reports No Symptoms
Skin: Reports No Symptoms
Neurological: Reports No Symptoms
Endocrine: Reports No Symptoms
Hematologic/Lymphatic: Reports No Symptoms
Psych: Reports No Symptoms
Physical Exam
Vital Signs
Vital Signs
Temp Pulse Resp BP Pulse Ox
97.8 F 84 23 126/72 92
01/13/24 11:32 01/13/24 11:54 01/13/24 11:45 01/13/24 11:45 01/13/24 11:45
Physical Exam
General: Well Developed, Well Nourished and No Apparent Distress
HEENT: NormoCephalic, Moist mucous membranes and Atraumatic
Respiratory: Clear
Cardiac: S1/S2 and Regular Rhythm; No Murmur or Rub
GI: Soft, Non Tender, Non Distended and Normal Bowel Sounds; No Organomegaly
Rectal: Deferred by Provider
Musculoskeletal: No Clubbing, No Cyanosis and No Edema
Skin: No Rash
Neuro: AO x 3 and Nonfocal/grossly intact
Psych: Calm
Laboratory Results
-
01/13/24 11:11
01/13/24 11:11
Laboratory Results
PT 13.3 Sec (11.4-14.6) 01/13/24 11:11
INR 1.03 01/13/24 11:11
APTT 28.7 Sec (23.4-35.0) 01/13/24 11:11
Total Bilirubin 0.9 mg/dl (0.2-1.3) 01/13/24 11:11
AST 32 U/L (14-36) 01/13/24 11:11
ALT 26 U/L (0-35) 01/13/24 11:11
Alkaline Phosphatase 76 U/L (38-126) 01/13/24 11:11
Data Reviewed
-
CT Scan: Report Reviewed by me
Lab Data: Labs Reviewed by me
Impression/Plan
-
#TIA vs focal seizure
-CT shows with No acute intracranial hemorrhage.Moderate size area of decreased attenuation in the right frontal lobe deep white matter most likely representing an area of encephalomalacia/old infarction.Possible tiny old left thalamic lacunar
infarct.Two left posterior parafalcine partially calcified lesions most likely representing meningiomas, as measured above.
-CTA with No findings to suggest hemodynamically significant stenosis of the proximal internal carotid arteries bilaterally.No findings to suggest internal carotid artery or vertebral artery dissection bilaterally.Narrow caliber left vertebral
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
flow via bulbous persistent trigeminal artery, latter with some ectasia.
-keppra
-MRI
-routine EEG
-seizure precaution
-PT/OT
#leukocytosis likely stress reaction
-wbc 11.5
-obtain UA
-ctm
#acute hypoxia unclear cause likely postictal
-will obtain chest x ray and covid antigen
-88 on RA, requiring 2l
-continue supplemental oxygen to keep sat >92
-wean as tolerated
#HLD
-statin
#DVT prophylaxis
-scd
#CODE status
-full code
[2024-01-13] MEDS: ASPIRIN 325 MG PO (13:04)
--- NOTE | 2024-01-13 13:46 | W.PN.UPDATE ---
Update Note
Progress Note Update
This is an addendum to the H&P written by Giana Yan on 01/13/2024. Patient seen and examined independently with [employer].
83-year-old female past medical history of bilateral blindness secondary to macular degeneration, breast cancer status was lobectomy, hyperlipidemia, syncopal episode secondary to presumably hypotension presenting for difficulty forming sentences,
facial droop followed by episode of unresponsiveness today lasting 1 hour associated with right leg shaking. Patient was also short of breath and hypoxic afterwards.
Patient has had episodes of vasovagal syncope in the past.
Per neurology evaluation patient had NIH score of 4 although facial palsy appears to have improved. Patient denies any complaints at this time. As per family she is back to normal mental status.
CT head shows no acute intracranial abnormality. Possible tiny old left thalamic lacunar infarct. Moderate size attenuation of the right frontal lobe likely encephalomalacia/old infarction. 2 left parafalcine partially calcified lesions likely
meningiomas. CTA shows no hemodynamically significant stenosis.
Concern for partial seizure versus CVA. MRI with and without contrast pending. Aspirin was given, continue aspirin. Keppra loading followed by maintenance started. Check EEG. Check A1c and lipid panel. Neurochecks per protocol. PT/OT, speech
evaluation.
Check chest x-ray and COVID to evaluate for hypoxia.
[2024-01-13 13:59] LABS: COVID-19 Antigen Negative (Negative)
[2024-01-13 14:20] LABS: Glycohemoglobin (HgbA1c) 5.4 % (4.0-5.6)
[2024-01-13 14:22] LABS: HDL Cholesterol 56 mg/dl; LDL Cholesterol, Calculated 67 mg/dl; Total Cholesterol 142 mg/dl (50-199); Triglyceride 96 mg/dl (10-149); Very Low Density Lipoprotein 19 mg/dl (0-30)
--- NOTE | 2024-01-13 15:24 | EEG.RPT ---
Electroencephalogram Report
Recording
Date of EE01/13/24
Type of EEG: Routine
Length of EEG recordin minutes
Done with Video Recording: Yes
Patient Status: Inpatient
Recording Conditions: Awake and Drowsy
Hyperventilation Performed: No
Photic Stimulation Performed: Yes
Report
LESS THAN 1 HOUR EEG REPORT
LESS THAN 1 HOUR EEG INTERPRETATION:
Likely normal study for age with significant drowsiness.
CLINICAL CORRELATION:
Although normative values not been established for a person of this advanced age the patient�s symmetry of the background suggests that this study was unremarkable. No epileptiform features were demonstrated.
If concerns remain regarding epilepsy, prolonged monitoring may be of assistance.
Clinical correlation is advised.
METHODS:
A 21-channel digital electroencephalogram (EEG) was performed in the [facility]. The 10/20 international system of electrode placement was used with ECG and lateral/vertical eye movements recorded. [employer] system
quantitative analysis was performed.
IMPRESSION(S):
Quality of study
Fair, with muscle artifact frequently
Background
Expected amplitude
Anterior-posterior voltage gradient differentiation: Fair
Alpha frequency maximal background demonstrated, usually theta
Sleep
Drowsiness present
Hyperventilation
Not performed
Photic Stimulation
Failed to activate the record
ECG
Normal rhythm
[2024-01-13 16:07] LABS: TSH Reflex To Free T4 5.95 uIU/ml (0.47-4.68)
[2024-01-13 16:11] LABS: Ferritin 66.8 ng/ml (11.1-264.0)
--- NOTE | 2024-01-13 16:28 | CM ---
Reviewed the chart notes and spoke with the patient and her spouse at the bedside. The patient resides with her spouse in an independent apartment at [facility]. The patient reports no DME. The patient has been to [facility] and had VN
in the past. Could not recall the name of the VN agency. The patient's choice of pharmacy is [facility]. CM continues to be available to patient/family and is monitoring medical plan for needs at discharge.
Plan: Discharge to home when medically stable. No needs anticipated at this time.
[2024-01-13 16:34] LABS: Free T4 1.28 ng/dl (0.78-2.19)
[2024-01-13 16:42] LABS: Folate > 20.0 ng/ml (2.76-20); Vitamin B12 > 1000 pg/ml (239-931)
[2024-01-13] MEDS: LIPITOR 40 MG PO (17:38)
[2024-01-13] MEDS: KEPPRA 500 MG IV (21:02)
[2024-01-14 03:08] VITALS: BP 106/55
[2024-01-14] MEDS: TYLENOL 650 MG PO (05:56)
[2024-01-14 07:25] VITALS: BP 116/69
[2024-01-14 07:35] LABS: Hematocrit 35.4 % (37.0-47.0); Hemoglobin 12.4 g/dL (12.0-16.0); Mean Corpuscular Hgb 30.8 pg (27.0-31.0); Mean Corpuscular Volume 87.8 fL (81.0-99.0); Platelet Count 223 10^3/uL (130-400); Red Blood Cell Count 4.03 10^6/uL (4.20-5.40); Red Cell Dist. Width 14.1 % (11.5-14.5); White Blood Cell Count 9.9 10^3/uL (4.8-10.8)
[2024-01-14 08:04] LABS: Blood Urea Nitrogen 21 mg/dl (7-17); Carbon Dioxide 27 mmol/L (22-30); Chloride 104 mmol/L (98-107); Estimated Creatinine Clearance 48 ml/min; Glucose 92 mg/dl (70-99); HDL Cholesterol 47 mg/dl; LDL Cholesterol, Calculated 70 mg/dl; Sodium 139 mmol/L (135-145); Total Cholesterol 129 mg/dl (50-199); Triglyceride 64 mg/dl (10-149); Very Low Density Lipoprotein 12 mg/dl (0-30); eGFR > 60.00
--- NOTE | 2024-01-14 09:21 | W.PN.HOSP.TC ---
Addendum entered and electronically signed by Shawn Esteves DO 01/14/24 12:14:
Neurosurgery recommends outpatient follow-up. They do not recommend steroids.
Stable for discharge on Keppra.
Pulse ox normal on room air. Discussed with nursing.
Original Note:
Today's Communication/Plan
-
Speech consult
Neurosurgery consult
Assessment / Plan
Assessment / Plan
Gen-AAOx3, NAD
HEENT-NC, AT, anicteric, clear oral mm
Neck-supple
CV-reg, no M, +S1/S2
Lungs-clear B/L
Abd-soft, NT, ND
Ext-no edema
Musculoskeletal-no cyanosis, clubbing
Skin-warm and dry
Neuro-grossly non-focal
Psych-calm, cooperative
Acute hypoxic respiratory insufficiency -possibly due to aspiration pneumonitis related to seizure. Currently on 3 L nasal cannula oxygen, wean down as able. Chest x-ray with minimal bilateral pleural effusions, possible bibasilar atelectasis.
New onset seizure -suspect related to meningioma noted on brain MRI. Continue Keppra. Neurology consulted.
Speech therapy consulted.
Meningioma - 4.1 cm on MRI, moderate mass effect on the medial left parietal lobe with mild vasogenic edema noted. Neurosurgery consulted.
She denies headaches, nausea or vomiting. History of syncope in the past.
History of strokes -brain MRI confirms 6.2 mm chronic lacunar infarct in the left thalamus. Moderate sized chronic transcortical infarct in the lateral right frontal lobe and right insular cortex with encephalomalacia.
Cervical spine discogenic degenerative disease -noted on MRI with mild spinal cord compression and central canal stenosis.
History of breast cancer -s/p lumpectomy.
Macular degeneration -legally blind
Hyperlipidemia -on atorvastatin.
Obesity due to excess calories
DNR
Daughter updated at the bedside.
Anticipated Discharge: 24 - 48 hours
Subjective/Interval History
-
Date of Service: January 14, 2024
Patient seen and examined. No complaints. Daughter at the bedside.
Objective Data
-
Labs:
Laboratory Results
01/14/24
06:55
WBC 9.9
Hgb 12.4
Hct 35.4 L
Plt Count 223
Sodium 139
Potassium 4.0
Chloride 104
Carbon Dioxide 27
BUN 21 H
Creatinine 0.8
Glucose 92
Calcium 9.0
Vital Signs:
Vital Signs
Temp Pulse Resp BP Pulse Ox
98.5 F 69 16 116/69 90
01/14/24 07:25 01/14/24 07:25 01/14/24 07:25 01/14/24 07:25 01/14/24 07:25
I&O
01/13/24 01/14/24 01/15/24
06:59 06:59 06:59
Intake Total 360 / 360
Balance 360 / 360
Review of Systems
-
History Source: Patient
All other systems: Reviewed and negative
--- NOTE | 2024-01-14 09:58 | PTOTSP ---
SPEECH THERAPY SWALLOW EVALUATION:
Patient exhibits grossly functional oropharyngeal swallow function at this time. Patient remains at risk for aspiration and related complications given acute (seizure, newly diagnosed large meningioma, confusion) and chronic (history of CVAs per
MRI) dysphagia risk factors. Patient without signs of aspiration at bedside; denies history of dysphagia. Recommend continue Regular texture diet, thin liquids. Medications whole with liquid. Aspiration precautions including: Upright positioning;
Small single sips/bites; Slow rate of intake; Assistance with tray set-up and cutting up food. Monitor for signs of aspiration and d/c oral diet if any decline in mental or respiratory status. Speech therapy to follow briefly, assess diet tolerance
and modify as appropriate, and complete full speech/language/cognitive communication.
RECOMMEND:
1) Regular texture diet, thin liquids
2) Medications whole with liquid
3) Aspiration precautions including: Upright positioning; Small single sips/bites; Slow rate of intake; Assistance with tray set-up and cutting up food. Monitor for signs of aspiration and d/c oral diet if any decline in mental or respiratory status
4) ST to follow
[2024-01-14] MEDS: KEPPRA IV (10:03)
[2024-01-14] MEDS: LOW STRENGTH ASPIRIN 81 MG PO (10:03)
[2024-01-14] MEDS: KEPPRA 500 MG PO (10:03)
--- NOTE | 2024-01-14 11:17 | CON.NS ---
Chief Complaint
-
Meningioma
History of Present Illness
This is an 83-year-old female admitted with seizure-like activity. Patient does have a history of syncopal episodes however this lasted longer than usual. Family reported that day of admission she was feeling dizzy and lightheaded and her legs
were shaky. There was also reports of difficulty speaking. Baseline light perception only blindness
MRIs been completed which shows a left sided parafalcine parietal meningioma. There is mild amount of surrounding vasogenic edema, measures 2.5 x 2.5 x 3.5 cm. There is also an old right frontal stroke.
She has no current complaints. She feels back to baseline only some feelings of mild tiredness and
Review of Systems
-
10 point review of systems is completed negative except stated in HPI
Medication and Allergies
Home Medications
Home Medications
�Medication �Instructions �Recorded
atorvastatin 10 mg tablet 10 mg PO DAILY 01/13/24
Allergies
Allergies
Allergy/AdvReac Type Severity Reaction Status Date / Time
codeine Allergy Vomiting Verified 01/13/24 11:24
Physical Exam
-
Exam:
Physical exam she is awake alert and oriented x 3
LPO blindness, cranial nerves otherwise intact
Full strength of her lower extremities, no drift
Sensory intact
Reflexes normal
Respirations even unlabored
Speech is clear and fluent
Problems
-
Problem Status Onset Code
Brain TIA G45.9
Assessment / Plan
-
Meningioma
1. No acute neurosurgical interventions
2. Recommend outpatient follow-up for discussion of surgical intervention
3. Continue antiseizure medications as ordered
4. No need for steroids
5. Neurosurgery will sign off reconsult as needed
[2024-01-14 11:40] VITALS: BP 126/73
--- NOTE | 2024-01-14 12:13 | W.DS.TRANS ---
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
-
Discharge Instructions:
Discharge Diagnosis/Procedures New onset seizures, meningioma
Diet Low Cholesterol
Activity As tolerated
Driving Restrictions No driving
Bathing Restrictions None
Instructions:
Stand-Alone Forms:
Changes to Home Medications: No
Discharge Medications:
DC Medications w/original date entered in [employer]
aspirin 81 mg chewable tablet 81 mg PO DAILY #0 tabs 01/14/24
atorvastatin 40 mg tablet 40 mg PO QPM #30 tabs 01/14/24
levetiracetam 500 mg tablet 500 mg PO BID #60 tabs 01/14/24
Home Medication Changes
Pending Results: No
[2024-01-14 12:16] VITALS: BP 127/69; BP 138/75; BP 145/80; PULSE 67; PULSE 68; PULSE 74
[2024-01-14 12:17] VITALS: BP 138/75
--- NOTE | 2024-01-14 12:41 | CM ---
CM met with pt and family at bedside.
Reviewed PT eval with all. All in agreement for home PT.
Offered choice of agency, preference is for [facility].
Will send referral via [employer].
--- NOTE | 2024-01-14 13:11 | W.DS.TRANS ---
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
-
Discharge Instructions:
Discharge Diagnosis/Procedures New onset seizures, meningioma
Diet Low Cholesterol
Activity As tolerated
Driving Restrictions No driving
Bathing Restrictions None
Instructions:
Stand-Alone Forms:
Changes to Home Medications: No
Discharge Medications:
DC Medications w/original date entered in [employer]
aspirin 81 mg chewable tablet 81 mg PO DAILY #0 tabs 01/14/24
atorvastatin 10 mg tablet 10 mg PO DAILY #30 tabs 01/14/24
levetiracetam 500 mg tablet 500 mg PO BID #60 tabs 01/14/24
Home Medication Changes
Pending Results: No
== END 2024-01-14 14:32 | disposition home or self-care (01) | DRG 100 ==
LOC: 2 NORTH 13:11
PROVIDERS: Registered Nurse; ADMITTING PHYSICIAN Hospitalist; ATTENDING PHYSICIAN Hospitalist; CONSULT PHYSICIAN Neurological Surgery; CONSULT PHYSICIAN Psychiatry & Neurology Neurology; EMERGENCY PHYSICIAN Emergency Medicine
DX: R56.9 Unspecified convulsions (principal); G93.6 Cerebral edema; R47.01 Aphasia; D32.0 Benign neoplasm of cerebral meninges; R09.02 Hypoxemia; G93.89 Other specified disorders of brain; E78.5 Hyperlipidemia, unspecified; E66.09 Other obesity due to excess calories; Z66 Do not resuscitate; Z68.29 Body mass index [BMI] 29.0-29.9, adult; Z86.73 Personal history of transient ischemic attack (TIA), and cerebral infarction without residual deficits
CPT/HCPCS: 70450; 70496; 70498; 70553; 71046; 80048; 80053; 80061; 82607; 82728; 82746; 82962; 83036; 84439; 84443; 85025; 85027; 85610; 85730; 87811; 92610; 93005; 94760; 95816; 96374; 96375; 97162; 99285; A9575; Q9967

== ENCOUNTER → 2024-03-23 11:02 | Outpatient (REF) | payer MEDICARE, OTHER, SELFPAY | LOC: MRI 3T 11:02 | PROVIDERS: ATTENDING PHYSICIAN Physician Assistant Medical; FAMILY PHYSICIAN Internal Medicine | DX: D35.2 Benign neoplasm of pituitary gland (principal) | CPT/HCPCS: 70553; A9575 ==

== ENCOUNTER → 2024-10-08 09:46 | Outpatient (REF) | payer MEDICARE, OTHER, SELFPAY | LOC: MRI 3T 09:46 | PROVIDERS: ATTENDING PHYSICIAN Physician Assistant Medical; FAMILY PHYSICIAN Internal Medicine | DX: D32.9 Benign neoplasm of meninges, unspecified (principal) | CPT/HCPCS: 70553; A9575 ==

== ENCOUNTER → 2025-02-19 10:20 | Outpatient (REF) | payer MEDICARE, OTHER, SELFPAY | LOC: MRI 3T 10:20 | PROVIDERS: ATTENDING PHYSICIAN Neurological Surgery; FAMILY PHYSICIAN Internal Medicine | DX: Z98.890 Other specified postprocedural states (principal); D32.0 Benign neoplasm of cerebral meninges | CPT/HCPCS: 70553; A9575 ==